=== PATIENT | male | born 1960 | race Caucasian/White ===

== ENCOUNTER 2018-01-25 10:32 | Emergency (ER) | payer MEDICARE ==
[2018-01-25] MEDS ORDERED: PROPARACAINE HCL OPTH 15ML BTL OPTH ONE (10:36)
[2018-01-25] MEDS ORDERED: ERYTHROMYCIN OPTH OINT 3.5GM OPTH ONE (10:47)
[2018-01-25] MEDS ORDERED: Diph,Pert(Acell),Tet Vac 0.5 ML SYR IM ONE (10:49)
--- NOTE | 2018-01-25 10:52 | Emergency Department Record ---
History of Present Illness - General Chief complaint: Eye Problem Stated complaint: LT EYE INJURY Time Seen by Provider: 01/25/18 10:47 Source: Patient, Family Mode of Arrival: Ambulatory Limitations: No limitations - History of Present Illness Initial comments: 57 yo male presents with a left eye injury. Around 8:30am his dog jumped up on his bed. The dog's paw hit his left eye scratching it. He has had pain since then. He wears glasses. No contacts. No other injuries. MD chief complaint: Eye injury Onset/Timin -: Hour(s) Onset Description: Sudden Location: Left eye Place: Home If Injury: None Eye Symptoms: Burning, Pain, Redness Severity scale (1-10): 10 If Pain, Quality: Sharp Consistency: Constant Context: Injury Associated Symptoms: None Treatments Prior to Arrival: None - Related Data Hx Tetanus Toxoid Vaccination: Yes Previous Rx's Medication Instructions Recorded Albuterol Sulfate [Proair Hfa] 1 - 2 puff IH .EVERY 4-6 HOURS PRN 12/06/14 #1 inhaler Allergies Allergy/AdvReac Type Severity Reaction Status Date / Time codeine [CODEINE] Allergy Unknown RASH Unverified 01/08/18 10:39 Travel Screening - Travel/Exposure Within Last 30 Days Have you traveled within the last 30 days?: No Review of Systems Constitutional: Denies: Fever Eyes: Reports: Eye pain, Photophobia, Vision change. Denies: Eye discharge ENT: Denies: Congestion Respiratory: Denies: Cough Endocrine: Denies: Fatigue Gastrointestinal: Denies: Abdominal pain, Nausea, Vomiting Skin: Denies: Change in color, Rash Neurological: Denies: Confusion, Headache Psychiatric: Denies: Anxiety Hematological/Lymphatic: Denies: Easy bleeding, Easy bruising Past Medical History - SOCIAL HISTORY Smoking Status: Former smoker Alcohol Use: None Drug Use: None - RESPIRATORY Hx Respiratory Disorders: Yes Hx COPD: Yes (uses inhalers very rarely) - CARDIOVASCULAR Hx Cardio Disorders: Yes Hx Hypertension: Yes - NEURO Hx Neuro Disorders: No - GI Hx GI Disorders: Yes Hx of Polyps: Yes - Hx Genitourinary Disorders: Yes Hx Prostate Problems: Yes (prostate cancer) - ENDOCRINE Hx Endocrine Disorders: No - MUSCULOSKELETAL Hx Musculoskeletal Disorders: Yes Hx Arthritis: Yes (psoriatic arthritis) Hx Back Injury: Yes (fx'd tailbone at age 20) - PSYCH Hx Psych Problems: Yes Hx Depression: Yes - HEMATOLOGY/ONCOLOGY Hx Hematology/Oncology Disorders: Yes Hx Cancer: Yes (prostate) Hx Radiation Therapy: Yes Family Medical History Any Significant Family History?: Yes Hx Dementia: Father Hx Heart Disease: Mother Hx Stroke: Grandparents Physical Exam - General General Appearance: Alert, Oriented x3, Cooperative, No acute distress Limitations: No limitations - Head Head exam: Atraumatic, Normal inspection - Eye Eye exam: PERRL, Conjunctival injection, EOMI. negative: Normal appearance, Periorbital swelling, Periorbital tenderness Pupils: Normal accommodation. negative: Irregular, Unequal Image of Eyes: 1 - pupil 2 - stain uptake, no streaming, clear AC, no hyphema, round reactive symmetric pupil, no subconjunctival hemorrhage, normal surface contours - ENT ENT exam: Normal exam Ear exam: Normal external inspection Nasal Exam: Normal inspection - Neck Neck exam: Normal inspection - Neurological Neurological exam: Alert, Normal gait, Oriented X3 - Psychiatric Psychiatric exam: Normal affect, Normal mood. negative: Agitated, Anxious - Skin Skin exam: Dry, Intact, Normal color, Warm Course Vital Signs 01/25/18 10:39 Temperature 97.7 F Pulse Rate 56 L Respiratory 18 Rate Blood Pressure 148/86 Pulse Ox 99 - Reevaluation(s) Reevaluation #1: Slit Lamp: Alcaine topical provided. The patient had immediate relief. AC is clear, no hyphema, mild conjunctival injection. fluorescent stain placed. Uptake medial in a vertical orientation. No streaming or signs of penetrating injury. Antibiotic ointment provided and Tetanus updated We discussed home care and the reasons to return for a follow up 01/25/18 10:52 Disposition Disposition: Discharge Clinical Impression: Corneal abrasion Qualifiers: Encounter type: initial encounter Laterality: left Qualified Code(s): S05.02XA - Injury of conjunctiva and corneal abrasion without foreign body, left eye, initial encounter Disposition: Home, Self-Care Condition: (1) Good Instructions: Corneal Abrasion (ED) Additional Instructions: Return to ED if your symptoms worsen or if you have any new concerns. Review the final Emergency Record and test results with your doctor on follow up Use the Erythromycin every 4-6 hours. Take Tylenol or Motrin. Avoid bright lights. Return in the next 24-48 hours for a recheck if not improving and sooner if worse. Time of Disposition: 10:56 Quality - Quality Measures Quality Measures: N/A - Blood Pressure Screening Does Patient Have Any of the Following: Active Dx of HTN Blood Pressure Classification: Pre-Hypertensive BP Reading Systolic Measurement: 148 Diastolic Measurement: 86 Screening for High Blood Pressure: Patient Exclusion, Hx of HTN [[id number]]
== END 2018-01-25 11:03 | disposition home or self-care (01) ==
LOC: ER 10:32
DX: S05.02XA Injury of conjunctiva and corneal abrasion without foreign body, left eye, initial encounter (principal); W54.8XXA Other contact with dog, initial encounter; Y92.003 Bedroom of unspecified non-institutional (private) residence as the place of occurrence of the external cause; I10 Essential (primary) hypertension; Z87.891 Personal history of nicotine dependence
CPT/HCPCS: 90715; 96372; 99282; 99283